=== PATIENT | female | born 1965 | race Caucasian/White ===

== ENCOUNTER → 2020-08-23 | Outpatient (REF) | payer OTHER ==
[2020-08-23 13:34] LABS: APPEARANCE, URINE MANUAL HAZY (CLEAR); BILIRUBIN, URINE MANUAL NEGATIVE (NEGATIVE); COLOR, URINE MANUAL YELLOW (YELLOW); GLUCOSE, URINE (UA) MANUAL NEGATIVE (NEGATIVE); KETONE, URINE MANUAL NEGATIVE (NEGATIVE); PROTEIN, URINE MANUAL 1+ mg/dL (NEGATIVE); UROBILINOGEN, URINE MANUAL NORMAL (NORMAL)
[2020-08-23 13:35] LABS: BLOOD URINE MANUAL POSITIVE (NEGATIVE); LEUKOCYTE ESTERASE, URINE MAN POSITIVE (NEGATIVE); NITRITE, URINE MANUAL NEGATIVE (NEGATIVE)
[2020-08-23 13:37] LABS: BACTERIA, URINE NONE SEEN; HYALINE CAST, URINE NONE SEEN /lpf (0-1); RBC, URINE NONE SEEN /hpf (0-3); SQUAMOUS EPITHELIAL CELL URINE SMALL AMOUNT /hpf (SMALL AMT)
== END ==
LOC: M LAB REF 12:36
PROVIDERS: ATTEND Physician Assistant
DX: N39.0 Urinary tract infection, site not specified (principal)

== ENCOUNTER → 2021-02-13 | Outpatient (CLI) | payer BC, OTHER ==
--- NOTE | 2021-02-13 16:35 | REP ---
INDICATION: PAIN AND SWEELING RIGHT THUMB COMPARISON: None. TECHNIQUE: AP, lateral, bilateral oblique views right 1st digit. FINDINGS: The osseous structures and joint spaces are intact and there is no evidence for acute fracture or dislocation. Surrounding soft tissues are unremarkable. Mild degenerative changes include subtle periarticular sclerosis and minimal joint space narrowing at the metacarpophalangeal and interphalangeal joint along with subtle broad-based spur at the head of the metacarpal bone. IMPRESSION: Mild age-related changes <Electronically signed by Jg Cortez > 02/13/21 1392
== END ==
LOC: M RAD 16:11
PROVIDERS: ATTEND Registered Nurse
DX: M79.641 Pain in right hand (principal); R22.33 Localized swelling, mass and lump, upper limb, bilateral; M25.741 Osteophyte, right hand

== ENCOUNTER → 2021-05-07 | Outpatient (CLI) | payer BC, OTHER | LOC: M RAD 13:42 | PROVIDERS: ATTEND Registered Nurse | DX: E07.9 Disorder of thyroid, unspecified (principal) ==

== ENCOUNTER → 2022-07-29 | Outpatient (CLI) | payer BC, OTHER | LOC: M RAD 15:34 | PROVIDERS: ATTEND Physician Assistant Medical | DX: E04.1 Nontoxic single thyroid nodule (principal) ==

== ENCOUNTER → 2022-12-25 | Outpatient (CLI) | payer BC, OTHER ==
[2022-12-25 14:45] LABS: BASO # 0.1 10^3/uL (0.0-0.2); BASO % 1.3 % (0.0-1.0); EOS # 0.1 10^3/uL (0.0-0.5); EOS % 3.6 % (0.0-3.0); HEMATOCRIT 40.9 % (36.0-47.0); HEMOGLOBIN 12.7 g/dl (12.0-15.5); LYMPH # 1.5 10^3/uL (1.5-5.0); LYMPH % 37.9 % (24.0-44.0); MEAN CORPUSCULAR HEMOGLOBIN 28.2 pg (27.0-33.0); MEAN CORPUSCULAR HGB CONC 31.1 g/dl (32.0-36.5); MEAN CORPUSCULAR VOLUME 90.7 fl (80.0-96.0); MONO # 0.3 10^3/uL (0.0-0.8); MONO % 7.7 % (2.0-8.0); NEUTROPHILS # 1.9 10^3/uL (1.5-8.5); PLATELET COUNT, AUTOMATED 250 10^3/uL (150-450); RED BLOOD COUNT 4.51 10^6/uL (4.00-5.40); WHITE BLOOD COUNT 3.9 10^3/uL (4.0-10.0)
[2022-12-25 14:49] LABS: LIPASE 53 U/L (12-53)
[2022-12-25 15:10] LABS: HEMOGLOBIN A1c 5.2 % (4.0-6.0)
[2022-12-25 15:22] LABS: ALBUMIN 3.8 G/DL (3.2-5.2); ALKALINE PHOSPHATASE 92 U/L (46-116); ALT/SGPT 14 U/L (7.0-40); AST/SGOT 15 U/L (<34); BILIRUBIN,TOTAL 0.4 MG/DL (0.3-1.2); BLOOD UREA NITROGEN 15 MG/DL (9-23); CALCIUM LEVEL 9.2 MG/DL (8.5-10.1); CARBON DIOXIDE LEVEL 32 MMOL/L (20-31); CHLORIDE LEVEL 103 MMOL/L (98-107); CHOLESTEROL LEVEL 193 MG/DL (<200); CREATININE FOR GFR 0.87 MG/DL (0.55-1.30); FOLATE > 24.0 NG/ML (>5.4); FREE T4 0.97 NG/DL (0.89-1.76); GLOMERULAR FILTRATION RATE > 60.0 (>51); GLUCOSE, FASTING 87 MG/DL (60-100); POTASSIUM SERUM 4.4 MMOL/L (3.5-5.1); SODIUM LEVEL 142 MMOL/L (136-145); THYROID STIMULATING HORMONE 2.766 uIU/ML (0.55-4.78); TOTAL 25(OH) VITAMIN D 61.5 NG/ML (20.0-100.0); TOTAL PROTEIN 6.7 G/DL (5.7-8.2); TRIGLYCERIDES LEVEL 52 MG/DL (<150); VITAMIN B12 LEVEL 1229 PG/ML (211-911)
[2022-12-25 18:54] LABS: CHOLESTEROL RISK RATIO 2.33 (<5); HDL CHOLESTEROL 82.5 MG/DL (>40); LDL CHOLESTEROL 100.1 MG/DL (<100); NON-HDL-C 110.5 MG/DL
== END ==
LOC: M PLALAB 08:50
PROVIDERS: ATTEND Physician Assistant
DX: R43.8 Other disturbances of smell and taste (principal)

== ENCOUNTER 2023-07-26 08:21 | Emergency (ER) | payer BC, OTHER ==
[~2023-07-26] VITALS: Ht 160 cm; Wt 49.7 kg
[2023-07-26 08:22] VITALS: TEMP 97.6
[2023-07-26] MEDS ORDERED: ZINC220CA PO (08:33)
[2023-07-26] MEDS ORDERED: TOLT4CAP3 (08:33)
[2023-07-26] MEDS ORDERED: VITA250T27 PO (08:33)
[2023-07-26] MEDS ORDERED: CALCTAB41 PO (08:33)
[2023-07-26] MEDS ORDERED: THERTAB52 PO (08:33)
[2023-07-26 09:13] LABS: EOS # 0.1 10^3/uL (0.0-0.5); EOS % 3.6 % (0.0-3.0); HEMATOCRIT 38.8 % (36.0-47.0); HEMOGLOBIN 13.1 g/dl (12.0-15.5); LYMPH # 1.5 10^3/uL (1.5-5.0); LYMPH % 37.2 % (24.0-44.0); MEAN CORPUSCULAR HEMOGLOBIN 31.3 pg (27.0-33.0); MEAN CORPUSCULAR HGB CONC 33.8 g/dl (32.0-36.5); MEAN CORPUSCULAR VOLUME 92.6 fl (80.0-96.0); MONO # 0.4 10^3/uL (0.0-0.8); MONO % 10.3 % (2.0-8.0); NEUTROPHILS # 1.9 10^3/uL (1.5-8.5); NEUTROPHILS % 47.6 % (36.0-66.0); PLATELET COUNT, AUTOMATED 192 10^3/uL (150-450); RED BLOOD COUNT 4.19 10^6/uL (4.00-5.40); WHITE BLOOD COUNT 3.9 10^3/uL (4.0-10.0)
[2023-07-26 09:34] LABS: LIPASE 45 U/L (12-53)
[2023-07-26 09:35] LABS: CK-MB VALUE MASS < 1.0 NG/ML (<3.6)
[2023-07-26 09:36] LABS: ALBUMIN 3.3 G/DL (3.2-5.2); ALKALINE PHOSPHATASE 88 U/L (46-116); ALT/SGPT 17 U/L (7.0-40); AST/SGOT 18 U/L (<34); BILIRUBIN,DIRECT < 0.1 MG/DL (<0.4); BILIRUBIN,TOTAL 0.4 MG/DL (0.3-1.2); BLOOD UREA NITROGEN 14 MG/DL (9-23); CALCIUM LEVEL 8.8 MG/DL (8.5-10.1); CARBON DIOXIDE LEVEL 30 MMOL/L (20-31); CHLORIDE LEVEL 108 MMOL/L (98-107); CREATININE FOR GFR 0.87 MG/DL (0.55-1.30); GLOMERULAR FILTRATION RATE > 60.0 (>51); GLUCOSE, FASTING 95 MG/DL (60-100); POTASSIUM SERUM 4.5 MMOL/L (3.5-5.1); SODIUM LEVEL 143 MMOL/L (136-145); TOTAL PROTEIN 6.1 G/DL (5.7-8.2)
[2023-07-26 09:38] LABS: THYROID STIMULATING HORMONE 3.134 uIU/ML (0.55-4.78)
[2023-07-26 09:39] LABS: FREE T4 1.03 NG/DL (0.89-1.76)
[2023-07-26] MEDS ORDERED: ISOVUE-370 76% 100ML VIAL As Ordered ONE (09:40)
[2023-07-26 09:58] LABS: CPK CREATINE PHOSPHOKINASE 78 U/L (34-145); MB/CK RELATIVE INDEX 1.28 (< OR =4)
[2023-07-26 11:01] LABS: CK-MB VALUE MASS < 1.0 NG/ML (<3.6)
[2023-07-26 11:07] LABS: CPK CREATINE PHOSPHOKINASE 79 U/L (34-145); MB/CK RELATIVE INDEX 1.26 (< OR =4)
[2023-07-26] MEDS ORDERED: DOXY100C82 PO (11:42)
[2023-07-26 11:45] VITALS: BP 100/65
[2023-07-26 11:51] VITALS: O2SAT 99
== END 2023-07-26 12:26 | disposition home or self-care (01) ==
LOC: M ED 08:21
DX: R07.9 Chest pain, unspecified (principal); J18.9 Pneumonia, unspecified organism; I45.10 Unspecified right bundle-branch block; Z79.810 Long term (current) use of selective estrogen receptor modulators (SERMs); Z79.899 Other long term (current) drug therapy
CPT/HCPCS: 36415; 71045; 71275; 80048; 80076; 82550; 82553; 83690; 84439; 84443; 84484; 85025; 85379; 93005; 93041; 94760; 99285; Q9967

== ENCOUNTER → 2023-08-18 | Outpatient (CLI) | payer BC ==
[~2023-08-18] MED LIST: CALCTAB41 PO; DOXY100C82 PO; THERTAB52 PO; TOLT4CAP3; VITA250T27 PO; ZINC220CA PO
== END ==
LOC: M RAD 09:23
PROVIDERS: ATTEND Physician Assistant
DX: J18.9 Pneumonia, unspecified organism (principal); J98.4 Other disorders of lung

== ENCOUNTER → 2023-11-04 | Outpatient (CLI) | payer BC | LOC: M PLAIMG 14:22 | PROVIDERS: ATTEND Physician Assistant | DX: M25.562 Pain in left knee (principal) ==

== ENCOUNTER → 2023-11-19 | Outpatient (CLI) | payer BC ==
[~2023-11-19] MED LIST changes: +ISOVUE-370 76% 100ML VIAL ONE
== END ==
LOC: M PLAIMG 13:37
PROVIDERS: ATTEND Physician Assistant
DX: R93.89 Abnormal findings on diagnostic imaging of other specified body structures (principal); R91.8 Other nonspecific abnormal finding of lung field; J98.4 Other disorders of lung
CPT/HCPCS: 71260; Q9967

== ENCOUNTER → 2024-01-06 | Outpatient (REF) | payer BC ==
[~2024-01-06] MED LIST changes: -ISOVUE-370 76% 100ML VIAL ONE
[2024-01-08 15:48] LABS: HPV APTIMA Not Detected (Not Detected)
== END ==
LOC: M SFHCWAGY 15:19
PROVIDERS: ATTEND Nurse Practitioner Family
DX: Z12.4 Encounter for screening for malignant neoplasm of cervix (principal)

== ENCOUNTER → 2024-03-16 | Outpatient (CLI) | payer BC | LOC: M RAD 08:04 | PROVIDERS: ATTEND Nurse Practitioner Family | DX: N95.0 Postmenopausal bleeding (principal); N83.201 Unspecified ovarian cyst, right side; N83.202 Unspecified ovarian cyst, left side ==

== ENCOUNTER → 2024-03-22 | Outpatient (REF) | payer BC | LOC: M SFHCWAGY 14:33 | PROVIDERS: ATTEND Nurse Practitioner Family | DX: N73.9 Female pelvic inflammatory disease, unspecified (principal) ==

== ENCOUNTER → 2024-04-13 | Outpatient (REF) | payer BC | LOC: M SFHCWAGY 11:02 | PROVIDERS: ATTEND Specialist | DX: N95.0 Postmenopausal bleeding (principal) ==

== ENCOUNTER → 2024-12-31 | Outpatient (CLI) | payer BC ==
[~2024-12-31] MED LIST changes: +DOXY-442 PO; -DOXY100C82 PO
[2024-12-31 17:37] LABS: PLATELET COUNT, AUTOMATED 257 10^3/uL (150-450)
[2024-12-31 17:38] LABS: ALT/SGPT 22 U/L (7.0-40); AST/SGOT 25 U/L (<34); CALCIUM LEVEL 9.9 MG/DL (8.5-10.1); CARBON DIOXIDE LEVEL 32 MMOL/L (20-31); CHLORIDE LEVEL 101 MMOL/L (98-107); CHOLESTEROL LEVEL 209 MG/DL (<200); CHOLESTEROL RISK RATIO 2.29 (<5); CREATININE FOR GFR 0.87 MG/DL (0.55-1.30); GLOMERULAR FILTRATION RATE 77.2 (>51); IRON (FE) 128 UG/DL (50-170); LDL CHOLESTEROL 107.9 MG/DL (<100); NON-HDL-C 117.9 MG/DL; PERCENT SATURATION 31.4 % (13.2-45.0); POTASSIUM SERUM 4.5 MMOL/L (3.5-5.1); SODIUM LEVEL 142 MMOL/L (136-145); TRIGLYCERIDES LEVEL 50 MG/DL (<150)
[2024-12-31 17:43] LABS: FREE T4 1.18 NG/DL (0.89-1.76); VITAMIN B12 LEVEL 1269 PG/ML (211-911)
== END ==
LOC: M PLALAB 14:45
PROVIDERS: ATTEND Family Medicine
DX: D64.9 Anemia, unspecified (principal); Z13.29 Encounter for screening for other suspected endocrine disorder; Z13.6 Encounter for screening for cardiovascular disorders

== ENCOUNTER → 2024-12-31 | Outpatient (REF) | payer BC | LOC: M SFHCPLAZ 14:15 | PROVIDERS: ATTEND Family Medicine | DX: Z53.9 Procedure and treatment not carried out, unspecified reason (principal) ==